=== PATIENT | female | born 1930 | race African-American/Black ===

== ENCOUNTER 2016-04-21 22:00 | Inpatient (IN) | payer MEDICARE ==
[~2016-04-21] VITALS: Ht 160 cm; Wt 49.9 kg
[~2016-04-21 22:00] MED LIST: ARICEPT5 MG PO; ATIVAN0.5 MG PO; LISINOPRIL5 MG PO; PRAVACHOL20 MG PO; VITAMIN K PO
[2016-04-21 23:31] VITALS: BP 145/60; BMI 19.5
--- NOTE | 2016-04-22 02:33 | NUR ---
NEW ADMIT TO DR BAILON FROM HOME. VIA ED. INCREASED CONFUSION. REFUSES TO TAKE MEDICATIONS FOR MONTHS. THREATS TO SHOOT FAMILY AND HAS A GUN AT HOME. RECEIVED FROM ED VIA WHEELCHAIR WITH HER NIECE/ POA 'JAK ' THAT PATIENT LIVES WITH BY HER SIDE. PATIENT IS ALERT AND ORIENTED X2. IN GOOD SPIRITS. NO SIGNS OF AGGRESSION. DENIES THOUGHT OF HARM TO HERSELF OR ANYONE ELSE.` VITALS ARE STABLE. ORIENTED TO UNIT. CONSENTS SIGNS BY POA. COOPERATIVE WITH ADMIT ASSESSMENT.
[2016-04-22 07:06] LABS: HEMOGLOBIN A1C 5.8 % (4.8-6.0)
[2016-04-22 07:17] LABS: CHOL - HDL RATIO 3.6 ratio (2.3-4.1); LDL-HDL RATIO 2.5 ratio (1.5-3.5); THYROID STIMULATING HORMONE 2.71 uIU/mL (0.36-3.74)
[2016-04-22 10:04] VITALS: Ht 160 cm; Wt 49.9 kg
[2016-04-22 12:33] VITALS: BP 182/68
--- NOTE | 2016-04-22 13:05 | NUR ---
B.) Received patient this am alert and oriented times three. I.) Adminster medications and monitor compliance, monitor for any threatening beahvior. R.) Compliant with medications, calm and cooperative with medications, has been pleasant with no aggresiveness or threatening behavior. P.) Continue plan of care.
[2016-04-22 14:06] LABS: APPEARANCE CLEAR (CLEAR); BILIRUBIN NEGATIVE (NEGATIVE); COLOR STRAW (YELLOW); GLUCOSE NEGATIVE (NEGATIVE); KETONE NEGATIVE (NEGATIVE); LEUKOCYTE ESTERASE NEGATIVE (NEGATIVE); NITRITE NEGATIVE (NEGATIVE); PROTEIN NEGATIVE (NEGATIVE); UROBILINOGEN NORMAL (NORMAL)
[2016-04-22 20:00] VITALS: BP 105/47
--- NOTE | 2016-04-22 21:35 | NUR ---
RECEIVED IN DAYROOM. SETTING IN CHAIR WITH PEERS AT HER SIDE. SOCIALIZING WITH PEER. LAUGHING AT TIMES. IN GOOD SPIRITS. CALM AND COOPERATIVE WITH CARE AND ASSESSMENT. NO SIGNS OF AGGRESSION. PM MEDS GIVEN ORDERED. RESTING IN BED EYES CLOSED AT THIS TIME. CONTINUE PLAN OF CARE
[2016-04-23 05:13] LABS: RAPID PLASMA REAGIN Non Reactive (Non Reactive)
--- NOTE | 2016-04-23 08:00 | NUR ---
B.) Alert and oriented times three, patient does not know why she is here,." I was having trouble with my blood pressure." State "no" when asked if she had threatened her family. I.) Administer medications and monitor compliance, assess for any change in behavior. R.) Compliant with medications, has been calm and cooperative, no aggression or thoughts of harming others. Interacts appropriate with staff and peers. P.) Patient pranay Ocampo has called this am and wants to have patient discharged due to family member dying and patient is oldest sibling and needs to be present at family meeting today. Patient will be evaluated per MD this am.
[2016-04-23 08:05] VITALS: BP 113/57
[2016-04-23 10:20] LABS: VITAMIN D 25 HYDROXY 11.8 ng/mL (30.0-100.0)
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
[2016-04-23] MEDS ORDERED: PERPHENAZINE2 MG PO (11:00)
[2016-04-23] MEDS ORDERED: ARICEPT10 MG PO (11:00)
--- NOTE | 2016-04-23 12:46 | NUR ---
Patient discharge without incident home with pranay Matias, patient is alert and oriented times three, no behaviors. Calm and cooperative. Family has found and removed weapons from home and return to rightful employment adjudicator. Patient not a threat to herself or others. Md has evaluated patient today and is ok for discharge. Discharge instructions given, follow up MD appointment made and medication scripts called to pharmacy.
--- NOTE | 2016-04-24 05:05 | DS ---
PATIENT:ALFIE GARRETT :[birth year] MEDICAL RECORD: [id number] DISCHARGE SUMMARY ADMISSION DATE: 04/21/16 DISCHARGE DATE: 04/23/16 DATE OF ADMISSION: 04/21/2016 DATE OF DISCHARGE: 04/23/2016 HISTORY OF PRESENT ILLNESS: Second Residential admission for this 86-year-old -Beninese female. The patient has a previous diagnosis of Alzheimer dementia and had been admitted here in 2014. The patient has continued to live with family, but had been developing worsening psychotic symptoms. She had been exhibiting paranoid delusional ideations and even made threats to harm her 5-year-old and 11-year-old grandchildren. The patient had been left in charge of the grandchildren during the day, while the mother work and the situation had become untenable. His situation was compounded by the fact that the patient did have access to a gun. For further details, please see previously dictated history. COURSE IN THE HOSPITAL: The patient was seen in consultation by Dr. Lawrence. He noted the presence of anemia, hyperlipidemia and hypertension. From a medication standpoint, the patient was treated conservatively. She was started on perphenazine 2 mg at bedtime for control of her psychotic symptoms. She was maintained on previous doses of Pravachol 20 mg at bedtime, Aricept 10 mg at bedtime and lisinopril 5 mg daily. The patient did well over the course of the hospitalization, the family; however, requested a fairly rapid discharge due to the terminal illness of the patient's sister. The family, in compliance with staff requests, located and remove the gun from the home and also were in the process of arranging for alternative care of the grandchildren. The patient will also be directed to have follow up at [facility] as well as with her primary care physician. FINAL DIAGNOSES: AXIS I: Alzheimer dementia with psychotic features -- improved. AXIS II: No diagnosis. AXIS III: Hypertension, anemia, hypercholesterolemia. AXIS IV: Moderate. AXIS V: 40. PLAN: 1. The patient is discharged on current medications. 2. Follow up with primary care and with [facility]. TRANSINT:[id number] Voice Confirmation ID: [id number] DOCUMENT ID: [id number] DISCHARGE SUMMARY REPORT [id number] MORALES GARRETTLIE ADAMARIS DE LA CRUZ, ZAIRE Ponce MD at 0500 CC: [id number] DICTATION DATE: 04/23/16 1058 CREDIT FRONT OFFICE DEVELOPER: 04/23/16 1127 DIS IN 04/23/16 [facility] [address] [place] [address]
== END 2016-04-23 12:45 | disposition home or self-care (01) | DRG 57 ==
LOC: D.PSYCH 22:00
PROVIDERS: ADMIT Psychiatry & Neurology Psychiatry
DX: G30.9 Alzheimer's disease, unspecified (principal); F02.81 Dementia in other diseases classified elsewhere, unspecified severity, with behavioral disturbance; I10 Essential (primary) hypertension; D64.9 Anemia, unspecified; E78.00 Pure hypercholesterolemia, unspecified; E78.5 Hyperlipidemia, unspecified; E55.9 Vitamin D deficiency, unspecified

== ENCOUNTER 2016-04-27 11:30 | Emergency (ER) | payer MEDICARE ==
[2016-04-22 10:04] VITALS: BMI 19.4
[~2016-04-27 11:30] MED LIST changes: +ARICEPT10 MG PO; +PERPHENAZINE2 MG PO
[2016-04-27 13:13] LABS: BASOPHILS 0.3 % (0.0-2.0); EOSINOPHILS 0.5 % (0-7); HEMATOCRIT 37.8 % (36.0-48.0); IMMATURE GRANULOCYTES 0.2 % (0-5); MCH 26.4 pg (26.0-34.0); MCHC 31.7 g/dL (31.0-37.0); MCV 83.3 fL (80.0-100.0); MONOCYTES 6.7 % (2-11); NEUTROPHILS 66.3 % (40-80); PLATELET COUNT 171 10x3/uL (130-400); RBC 4.54 10x6/uL (4.00-5.40); RDW 13.2 % (11.5-14.5)
[2016-04-27 13:23] LABS: APPEARANCE CLEAR (CLEAR); BACTERIA MODERATE /hpf (NONE SEEN); BILIRUBIN NEGATIVE (NEGATIVE); COLOR YELLOW (YELLOW); EPITHELIAL CELLS 0-5 /hpf (0-5); GLUCOSE NEGATIVE (NEGATIVE); KETONE NEGATIVE (NEGATIVE); LEUKOCYTE ESTERASE TRACE (NEGATIVE); MUCUS <1+ /lpf (NONE SEEN); NITRITE NEGATIVE (NEGATIVE); PROTEIN NEGATIVE (NEGATIVE); RED CELLS - URINE 0-5 /hpf (0-5); UROBILINOGEN NORMAL (NORMAL)
[2016-04-27 13:27] LABS: ALBUMIN 3.8 g/dL (3.4-5.0); ANION GAP 8.9 mmol/L (8-16); BILIRUBIN - TOTAL 0.46 mg/dL (0.2-1.3); CARBON DIOXIDE 30.1 mmol/L (21.0-32.0); CREATININE - SERUM 0.9 mg/dL (0.6-1.3); PROTEIN - SERUM 6.9 g/dL (6.4-8.2)
== END 2016-04-27 17:03 | disposition home or self-care (01) ==
LOC: D.ER 11:30
PROVIDERS: Emergency Medicine
DX: I10 Essential (primary) hypertension (principal); N39.0 Urinary tract infection, site not specified; F41.9 Anxiety disorder, unspecified; F03.90 Unspecified dementia, unspecified severity, without behavioral disturbance, psychotic disturbance, mood disturbance, and anxiety; E78.5 Hyperlipidemia, unspecified

== ENCOUNTER 2016-06-07 17:32 | Emergency (ER) | payer MEDICARE ==
[2016-04-22 10:04] VITALS: BMI 19.4
[2016-06-07 18:52] LABS: BASOPHILS 0.3 % (0.0-2.0); EOSINOPHILS 1.4 % (0-7); HEMATOCRIT 36.2 % (36.0-48.0); HEMOGLOBIN 11.3 g/dL (12-16); IMMATURE GRANULOCYTES 0.3 % (0-5); LYMPHOCYTES 18.1 % (15-50); MCH 25.8 pg (26.0-34.0); MCHC 31.2 g/dL (31.0-37.0); MCV 82.6 fL (80.0-100.0); MEAN PLATELET VOLUME 9.5 fL (7.4-10.4); MONOCYTES 6.3 % (2-11); NEUTROPHILS 73.6 % (40-80); PLATELET COUNT 190 10x3/uL (130-400); RBC 4.38 10x6/uL (4.00-5.40); RDW 13.5 % (11.5-14.5); WBC 5.9 10x3/uL (4.8-10.8)
[2016-06-07 19:11] LABS: ALBUMIN 3.8 g/dL (3.4-5.0); ANION GAP 13.3 mmol/L (8-16); BILIRUBIN - TOTAL 0.34 mg/dL (0.2-1.3); CARBON DIOXIDE 28.1 mmol/L (21.0-32.0); CREATININE - SERUM 0.9 mg/dL (0.6-1.3); POTASSIUM - SERUM 4.4 mmol/L (3.5-5.1); PROTEIN - SERUM 7.1 g/dL (6.4-8.2)
[2016-06-07 19:14] LABS: APPEARANCE CLEAR (CLEAR); BACTERIA FEW /hpf (NONE SEEN); BILIRUBIN NEGATIVE (NEGATIVE); COLOR YELLOW (YELLOW); EPITHELIAL CELLS 0-5 /hpf (0-5); GLUCOSE NEGATIVE (NEGATIVE); KETONE NEGATIVE (NEGATIVE); LEUKOCYTE ESTERASE TRACE (NEGATIVE); MUCUS <1+ /lpf (NONE SEEN); NITRITE NEGATIVE (NEGATIVE); PROTEIN NEGATIVE (NEGATIVE); RED CELLS - URINE 0-5 /hpf (0-5); SPECIFIC GRAVITY 1.025 (1.005-1.020); UROBILINOGEN NORMAL (NORMAL)
[2016-06-07 19:15] LABS: UDS - AMPHET NEGATIVE QUAL (NEGATIVE); UDS - BARB NEGATIVE QUAL (NEGATIVE); UDS - BENZO NEGATIVE QUAL (NEGATIVE); UDS - COCAINE NEGATIVE QUAL (NEGATIVE); UDS - METH NEGATIVE QUAL (NEGATIVE); UDS - OPIATE NEGATIVE QUAL (NEGATIVE); UDS - PCP NEGATIVE QUAL (NEGATIVE); UDS - THC NEGATIVE QUAL (NEGATIVE)
== END 2016-06-07 23:12 ==
LOC: D.ER 17:32 → D.PSYCH 21:12 → D.ER 23:12
PROVIDERS: Physician Assistant
DX: F03.90 Unspecified dementia, unspecified severity, without behavioral disturbance, psychotic disturbance, mood disturbance, and anxiety (principal); F39 Unspecified mood [affective] disorder; N39.0 Urinary tract infection, site not specified; I10 Essential (primary) hypertension; E78.5 Hyperlipidemia, unspecified

== ENCOUNTER 2017-01-03 10:50 | Emergency (ER) | payer MEDICARE ==
[2016-04-22 10:04] VITALS: BMI 19.4
== END 2017-01-03 12:56 | disposition home or self-care (01) ==
LOC: D.ER 10:50
DX: J06.9 Acute upper respiratory infection, unspecified (principal)

== ENCOUNTER 2017-04-23 12:42 | Emergency (ER) | payer MEDICARE ==
[2016-04-22 10:04] VITALS: BMI 19.4
[2017-04-23 13:07] LABS: BASOPHILS 0.3 % (0-2); EOSINOPHILS 1.3 % (0-7); HEMATOCRIT 35.9 % (36.0-48.0); HEMOGLOBIN 11.4 g/dL (12-16); IMMATURE GRANULOCYTES 0.3 % (0-5); LYMPHOCYTES 38.9 % (15-50); MCH 26.1 pg (26.0-34.0); MCHC 31.8 g/dL (31.0-37.0); MCV 82.3 fL (80.0-100.0); MONOCYTES 9.5 % (2-11); NEUTROPHILS 49.7 % (40-80); PLATELET COUNT 165 10x3/uL (130-400); RBC 4.36 10x6/uL (4.00-5.40); RDW 13.2 % (11.5-14.5)
[2017-04-23 13:33] LABS: ALBUMIN 3.6 g/dL (3.4-5.0); ANION GAP 10.2 mmol/L (8-16); BILIRUBIN - TOTAL 0.26 mg/dL (0.2-1.3); CALCIUM 9.1 mg/dL (8.5-10.1); CARBON DIOXIDE 29.1 mmol/L (21.0-32.0); POTASSIUM - SERUM 4.3 mmol/L (3.5-5.1); PROTEIN - SERUM 6.6 g/dL (6.4-8.2)
[2017-04-23 17:22] LABS: APPEARANCE CLEAR (CLEAR); BILIRUBIN NEGATIVE (NEGATIVE); COLOR STRAW (YELLOW); GLUCOSE NEGATIVE (NEGATIVE); KETONE NEGATIVE (NEGATIVE); NITRITE NEGATIVE (NEGATIVE); PROTEIN NEGATIVE (NEGATIVE); UROBILINOGEN NORMAL (NORMAL)
[2017-04-23 17:24] LABS: UDS - AMPHET NEGATIVE QUAL (NEGATIVE); UDS - BARB NEGATIVE QUAL (NEGATIVE); UDS - BENZO NEGATIVE QUAL (NEGATIVE); UDS - COCAINE NEGATIVE QUAL (NEGATIVE); UDS - OPIATE NEGATIVE QUAL (NEGATIVE); UDS - PCP NEGATIVE QUAL (NEGATIVE); UDS - THC NEGATIVE QUAL (NEGATIVE)
== END 2017-04-23 18:25 ==
LOC: D.ER 12:42
PROVIDERS: Emergency Medicine
DX: Z00.8 Encounter for other general examination (principal); I10 Essential (primary) hypertension

== ENCOUNTER 2017-04-23 18:42 | Inpatient (IN) | payer MEDICARE ==
[~2017-04-23] VITALS: Ht 160 cm; Wt 52.7 kg
--- NOTE | ~2017-04-23 | PN ---
PATIENT:ALFIE GARRETT MEDICAL RECORD: [id number] LOCATION:[facility] ADMISSION DATE: 04/23/17 PROGRESS NOTE DATE OF SERVICE: 04/29/2017 SUBJECTIVE: No new complaint. OBJECTIVE: The patient has continued to do quite well. She has not shown any evidence of agitation or combativeness since hospitalization. Staff has informed the patient's niece that it is very unlikely the patient will be readmitted again under the current circumstances. On exam, mood is euthymic. Affect is very bland, pleasant. Speech is terse, but otherwise no language disorder. Content of thought shows no psychosis. Sensorium unchanged. ASSESSMENT: No change in diagnosis. PLAN: 1. Continue current treatment plan. 2. Anticipate discharge tomorrow. TRANSINT:[id number] Voice Confirmation ID: [id number] DOCUMENT ID: [id number] ZAIRE BAILON III, MD at 0452 CC: [id number] DICTATION DATE: 04/29/17 1141 RETAIL DELIVERY DRIVER: 04/29/17 1450 ADM IN [id number] [place] [address]
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
--- NOTE | ~2017-04-23 | PN ---
PATIENT:ALFIE GARRETT MEDICAL RECORD: [id number] LOCATION:[facility] ADMISSION DATE: 04/23/17 PROGRESS NOTE DATE OF SERVICE: 04/28/2017 SUBJECTIVE: No new complaint noted. OBJECTIVE: The patient continues to be cooperative. Staff has spoken with the patient's niece regarding the need for the patient to have no contact with the children since they appear to be a trigger for her irritability. The patient has shown no aggressiveness whatsoever in the hospital. She has been cooperative and pleasant. On exam, mood is euthymic. Affect is bland. Speech rather terse. Content of thought is negative for psychosis. Sensorium unchanged. ASSESSMENT: No change in diagnosis. PLAN: 1. Maintain current medication. 2. Continue supportive therapy. TRANSINT:[id number] Voice Confirmation ID: [id number] DOCUMENT ID: [id number] ZAIRE BAILON III, MD at 1037 CC: [id number] DICTATION DATE: 04/28/17 1139 ARCHERY EQUIPMENT REPAIRER: 04/28/17 1230 ADM IN [id number] [place] [id number]
--- NOTE | ~2017-04-23 | PN ---
PATIENT:ALFIE GARRETT MEDICAL RECORD: [id number] LOCATION:[facility] ADMISSION DATE: 04/23/17 PROGRESS NOTE DATE OF SERVICE: 04/27/2017 SUBJECTIVE: No new complaint. OBJECTIVE: The patient has been very pleasant and cooperative. No agitated or combative behavior noted. On exam, mood is euthymic. Affect is bland. Speech rather terse. Content of thought is negative for overt psychosis. Sensorium unchanged. ASSESSMENT: No change in diagnosis. PLAN: 1. Maintain current medications. 2. Continue supportive therapy. TRANSINT:[id number] Voice Confirmation ID: [id number] DOCUMENT ID: [id number] ZAIRE BAILON III, MD at 1049 CC: [id number] DICTATION DATE: 04/27/17 1156 LEATHER CURRIER: 04/27/17 1435 ADM IN [facility] [address] [place] [address]
--- NOTE | ~2017-04-23 | PN ---
PATIENT:ALFIE GARRETT MEDICAL RECORD: [id number] LOCATION:[facility] ADMISSION DATE: 04/23/17 PROGRESS NOTE DATE OF SERVICE: 04/30/2017 SUBJECTIVE: No new complaint. OBJECTIVE: The patient remains very cooperative. Her niece informs that she cannot pick her up until tomorrow, so she will be discharged at that time, and the patient will be returning home. On exam, mood is euthymic. Affect is very pleasant. Speech is somewhat terse. Content of thought is negative for psychosis. Sensorium unchanged. ASSESSMENT: No change in diagnosis. PLAN: 1. Continue current medications. 2. Continue supportive therapy. TRANSINT:[id number] Voice Confirmation ID: [id number] DOCUMENT ID: [id number] ZAIRE BAILON III, MD at 1100 CC: [id number] DICTATION DATE: 04/30/17 1148 PRESS MAINTAINER: 04/30/17 1211 DIS IN 05/01/17 [id number] [place] [address]
--- NOTE | ~2017-04-23 | PN ---
PATIENT:ALFIE GARRETT MEDICAL RECORD: [id number] LOCATION:[facility] ADMISSION DATE: 04/23/17 PROGRESS NOTE DATE OF SERVICE: 05/01/2017 SUBJECTIVE: The patient's case was discussed with staff. She has no new complaint. OBJECTIVE: The patient denies intent to harm herself or others. She tolerates her medicines well. ASSESSMENT: No change in diagnoses. PLAN: Brief supportive and educational interventions were made. Snf prognosis is guarded. The patient shows no evidence of acute or direct dangerousness. Her plan is to be discharged today with her niece, Damaris. TRANSINT:[id number] Voice Confirmation ID: [id number] DOCUMENT ID: [id number] ELIZABETH SILVA MD at 1215 CC: [id number] DICTATION DATE: 05/01/17 1458 MUSIC THEORY PROFESSOR: 05/01/172013 DIS IN 05/01/17 [facility] [address] [place] [address]
[2017-04-23 19:30] VITALS: BP 153/55
[2017-04-23 22:07] VITALS: BP 153/55
[2017-04-23 22:36] VITALS: BP 153/55; BMI 20.5
[2017-04-24 07:16] LABS: HEMOGLOBIN A1C 5.7 % (4.8-6.0)
[2017-04-24 07:23] LABS: LDL-HDL RATIO 1.8 ratio (1.5-3.5)
[2017-04-24 09:19] VITALS: BP 126/057
[2017-04-24 10:41] VITALS: BMI 20.5
[2017-04-24 10:47] VITALS: Ht 160 cm; Wt 52.7 kg
[2017-04-24 14:24] LABS: APPEARANCE CLEAR (CLEAR); BACTERIA FEW /hpf (NONE SEEN); BILIRUBIN NEGATIVE (NEGATIVE); COLOR YELLOW (YELLOW); EPITHELIAL CELLS 0-5 /hpf (0-5); GLUCOSE NEGATIVE (NEGATIVE); KETONE NEGATIVE (NEGATIVE); NITRITE NEGATIVE (NEGATIVE); PROTEIN NEGATIVE (NEGATIVE); RED CELLS - URINE OCC /hpf (0-5); SPECIFIC GRAVITY 1.015 (1.005-1.020); UROBILINOGEN NORMAL (NORMAL); WHITE CELLS - URINE 0-5 /hpf (0-5)
[2017-04-24 14:25] LABS: MUCUS <1+ /lpf (NONE SEEN)
[2017-04-24 19:30] VITALS: BP 139/60
[2017-04-25 08:34] VITALS: BP 136/50
[2017-04-25 19:37] VITALS: BP 136/70
[2017-04-26 07:00] VITALS: BP 164/53
[2017-04-26 20:10] VITALS: BP 159/46
[2017-04-27 07:00] VITALS: BP 135/58
[2017-04-27 20:06] VITALS: BP 162/53
[2017-04-28 08:56] VITALS: BP 148/55
[2017-04-28 19:44] VITALS: BP 154/50
[2017-04-29 10:46] VITALS: BP 110/56
[2017-04-29 20:41] VITALS: BP 109/50
[2017-04-30 09:31] VITALS: BP 159/60
[2017-04-30 19:30] VITALS: BP 145/66
[2017-05-01 08:30] VITALS: BP 138/051
== END 2017-05-01 16:29 | disposition home or self-care (01) | DRG 57 ==
LOC: D.PSYCH 18:42
PROVIDERS: Psychiatry & Neurology Psychiatry
DX: G30.9 Alzheimer's disease, unspecified (principal); F02.81 Dementia in other diseases classified elsewhere, unspecified severity, with behavioral disturbance; F05 Delirium due to known physiological condition; I10 Essential (primary) hypertension; E78.5 Hyperlipidemia, unspecified; E55.9 Vitamin D deficiency, unspecified; D53.9 Nutritional anemia, unspecified; F41.9 Anxiety disorder, unspecified

== ENCOUNTER 2017-05-06 11:01 | Emergency (ER) | payer MEDICARE ==
[2017-04-24 10:47] VITALS: BMI 20.5
== END 2017-05-06 13:05 | disposition home or self-care (01) ==
LOC: D.ER 11:01
DX: J11.1 Influenza due to unidentified influenza virus with other respiratory manifestations (principal); I10 Essential (primary) hypertension